=== PATIENT | female | born 1935 | race Caucasian/White ===

== ENCOUNTER 2018-12-25 12:23 | Emergency (ER) | payer MEDICARE ==
[2018-12-25 13:05] LABS: Bilirubin Negative (Negative); Blood, Urine Negative (Negative); Clarity Clear (Clear); Glucose, Urine (Dipstick) Normal (Negative); Leukocyte Negative Leu/uL (Negative); Nitrite Negative (Negative); Protein, Urine (Dipstick) Negative (Neg-Trace); Urobilinogen Normal mg/dL (Less than 2)
[2018-12-25 13:19] LABS: Hemoglobin 10.6 g/dL (12.0-16.0); Mean Corpuscular HGB CONC 33.4 g/dL (32.0-36.0); Mean Corpuscular Hemoglobin 32.4 pg (27.0-31.0); Mean Platelet Volume 7.4 fL (7.4-10.4); Platelet Count 199 thou/uL (130-400); RBC Distribution Width 11.4 % (11.5-14.5); Red Blood Cell (RBC) Count 3.26 mill/uL (4.20-5.40)
[2018-12-25 13:41] LABS: Band 1 % (5-11); Eosinophils 1 % (0-10); Lymphocytes 23 % (21-51); MDiff Complete? YES; Monocytes 12 % (0-10); Neutrophil 62 % (42-75); Platelet Morphology Comment Appears Adequate; Polychromasia SLIGHT = 2-3 cells (100X) (0-2/hpf); Reactive Lymphocytes 1 % (0-10)
[2018-12-25 13:42] LABS: ALT (SGPT) 11 U/L (8-55); AST (SGOT) 18 U/L (5-34); Albumin 3.3 g/dL (3.4-4.8); Alkaline Phosphatase 50 U/L (40-110); Anion Gap 15 mmol/L (10-20); BUN (Urea Nitrogen) 17 mg/dL (9.8-20.1); Bilirubin, Total 0.5 mg/dL (0.2-1.2); Calc. Creatinine Clearance 0 mL/min (70-130); Calcium 9.2 mg/dL (7.8-10.44); Carbon Dioxide 22 mmol/L (23-31); Chloride 104 mmol/L (98-107); Estimated GFR-MDRD 58; Globulin 2.6 g/dL (2.4-3.5); Glucose 86 mg/dL (83-110); Potassium 3.5 mmol/L (3.5-5.1); Protein, Total 5.9 g/dL (6.0-8.3); Sodium 137 mmol/L (136-145)
--- NOTE | 2018-12-25 14:13 | RAD ---
RADIOGRAPH CHEST 1 VIEW: DATE: 12/25/2018 HISTORY: 83-year-old female with fever. FINDINGS: There are no airspace densities, pulmonary edema, pneumothorax, or cardiomegaly. The lateral costophr enic angles are sharp. IMPRESSION: No acute cardiopulmonary findings.
--- NOTE | 2018-12-25 14:41 | ULT ---
ULTRASOUND DOPPLER DUPLEX VENOUS RIGHT LOWER EXTREMITY: DATE: 12/25/2018 HISTORY: 83-year-old female with right lower extremity pain TECHNIQUE: Grayscale, color-flow, and spectral analysis, of major veins of right lower extremity. FINDINGS: There is demonstration of blood flow with normal compressibility, of the right common femoral, profun da femoral, greater saphenous, femoral, popliteal, and posterior tibial, veins. IMPRESSION: Negative. No deep venous thrombosis of right lower extremity.
--- NOTE | 2018-12-25 14:48 | CT ---
CT BRAIN NONCONTRAST: DATE: 12/25/2018 HISTORY: 83-year-old female with altered mental status: Unresponsive. FINDINGS: There is no evidence of acute intra-axial or extra-axial hemorrhage. There is no midline shift or any other mass effect. There is no extra-axial fluid collection. There is no evidence of obstructive hydrocephalus. Calvarium is intact. There is diffuse brain parenchymal volume loss. There are low att enuation areas in the white matter. These are nonspecific, but in a patient of this age, they are probably chronic ischemic white matter changes due to microvascular atherosclerosis. Small old lacuna r infarction at anterior portion of left basal ganglia involving anterior limb of left internal capsule and anterior portion of left external capsule. Tiny old lacunar infarction of right cerebella r hemisphere. IMPRESSION: 1) No acute intracranial findings. 2) involutional changes and chronic ischemic white matter changes. 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
== END 2018-12-25 15:58 | disposition home or self-care (01) ==
LOC: ERS 12:23
DX: T16.1XXA Foreign body in right ear, initial encounter (principal); H60.90 Unspecified otitis externa, unspecified ear; E78.5 Hyperlipidemia, unspecified; I10 Essential (primary) hypertension; Z87.891 Personal history of nicotine dependence; M25.471 Effusion, right ankle
CPT/HCPCS: 36415; 51701; 69200; 70450; 71045; 80053; 81003; 83605; 85025; 87040; A4353

== ENCOUNTER 2019-03-23 07:24 | Emergency (ER) | payer MEDICARE ==
--- NOTE | 2019-03-23 09:10 | RAD ---
EXAM: 2 views of the lumbosacral spine HISTORY: Low back pain after fall COMPARISON: None FINDINGS: 2 views of the lumbosacral spine shows normal height and alignment of the vertebral bodies without fracture or subluxation. Moderate degenerative changes are seen throughout the lumbar spine with intervertebral disc space narrowing and osteophyte formation. The sacroiliac joints are unremarkable. Dense calcifications are seen in the aorta. IMPRESSION: Moderate degenerative changes of the lumbar spine without acute osseous abnormality.
--- NOTE | 2019-03-23 09:16 | RAD ---
XR Chest Pa Lat STANDARD HISTORY: Fall COMPARISON: 12/25/2018 FINDINGS: The heart size is prominent. The lungs are well expanded without focal areas of consolidati on, pneumothorax or pleural effusions.
--- NOTE | 2019-03-23 09:17 | CT ---
Head CT without contrast 03/23/2019: COMPARISON: 12/25/2018 HISTORY: Fall, altered mental status TECHNIQUE: Axial CT imaging at 5 mm intervals from vertex through skull base without contrast FINDINGS: The imaged paranasal sinuses and mastoid air cells are well aerated. No displaced calvarial fracture. No intracranial hemorrhage, midline shift, or mass effect. Periventricular and deep white matter hypodensity noted, evidence of small vessel disease. Evidence o f prior lacunar infarctions are noted within the basal ganglia bilaterally, left greater than right. No acute findings. IMPRESSION: Stable head CT as detailed above. No intracranial hemorrhage. If there is clinical concer n for acute infarction, brain MRI suggested.
[2019-03-23] MEDS ORDERED: Acetaminophen 500 MG TAB ONE (09:23)
--- NOTE | 2019-03-23 09:26 | CT ---
CT CERVICAL SPINE WITH CORONAL AND SAGITTAL REFORMATIONS AND NO IV CONTRAST: HISTORY: Fall, neck pain FINDINGS: Multilevel degenerative changes are present. There is minimal anterolisthesis of C3 over C4 and C4 over C5 vertebral bodies. No fracture, subluxation or facet malalignment is identified. No prevertebral soft tissue swelling is apparent. IMPRESSION: No CT evidence for fracture or traumatic subluxation.
== END 2019-03-23 11:19 | disposition home or self-care (01) ==
LOC: ERS 07:24
DX: S20.229A Contusion of unspecified back wall of thorax, initial encounter (principal); E78.5 Hyperlipidemia, unspecified; I10 Essential (primary) hypertension; M19.90 Unspecified osteoarthritis, unspecified site; F03.90 Unspecified dementia, unspecified severity, without behavioral disturbance, psychotic disturbance, mood disturbance, and anxiety; D64.9 Anemia, unspecified; E55.9 Vitamin D deficiency, unspecified; Z87.891 Personal history of nicotine dependence; Z79.899 Other long term (current) drug therapy; W19.XXXA Unspecified fall, initial encounter
CPT/HCPCS: 70450; 71046; 72100; 72125

== ENCOUNTER 2019-04-12 17:14 | Inpatient (IN) | payer MEDICARE ==
--- NOTE | 2019-04-12 18:17 | RAD ---
XR Hip Lt 2-3 View History: Pain. Fall Comparison: None. Findings: Comminuted mild varus angulated intertrochanteric fracture left femur. Mild vascular calcif ications. Left obturator ring is intact. Impression: Varus angulated comminuted intertrochanteric fracture left femur with extension to the le sser and greater trochanters.
--- NOTE | 2019-04-12 18:43 | RAD ---
CHEST ONE VIEW: 04/12/19 HISTORY: Hip fracture. Preoperative exam. COMPARISON: 12/25/18 FINDINGS: Atherosclerosis and elongation of the aorta. Normal cardiac silhouette. The pulmonary vessels and hil um are normal. Costophrenic angles are clear. Hyperinflation with chronic lung parenchymal changes. N o masses or consolidation. No pneumothorax or acute osseous abnormalities. IMPRESSION: 1. Hyperinflation. Chronic changes. 2. Atherosclerosis. POS: PPP
[2019-04-12 19:24] LABS: Bilirubin Negative (Negative); Blood, Urine Negative (Negative); Clarity Clear (Clear); Glucose, Urine (Dipstick) Normal (Negative); Leukocyte Negative Leu/uL (Negative); Nitrite Negative (Negative); Protein, Urine (Dipstick) Negative (Neg-Trace); Urobilinogen Normal mg/dL (Less than 2)
[2019-04-12 19:43] LABS: #Eosinphils 0.1 thou/uL (0.0-0.7); #Lymphocytes 1.1 thou/uL (1.20-3.40); #Monocytes 0.8 thou/uL (0.11-0.59); #Neutrophils 10.1 thou/uL (1.40-6.50); %Basophils 0.2 % (0.0-1.0); %Eosinophils 0.5 % (0.0-10.0); %Lymphocytes 9.3 % (21.0-51.0); %Monocytes 6.8 % (0.0-10.0); %Neutrophils 83.3 % (42.0-75.0); Hemoglobin 10.8 g/dL (12.0-16.0); Mean Corpuscular HGB CONC 32.6 g/dL (32.0-36.0); Mean Corpuscular Hemoglobin 30.5 pg (27.0-31.0); Mean Corpuscular Volume 93.6 fL (78.0-98.0); Mean Platelet Volume 8.4 fL (7.4-10.4); Platelet Count 154 thou/uL (130-400); RBC Distribution Width 11.7 % (11.5-14.5); Red Blood Cell (RBC) Count 3.53 mill/uL (4.20-5.40); White Blood Cell (WBC) Count 12.1 thou/uL (4.8-10.8)
[2019-04-12 20:02] LABS: Anion Gap 12 mmol/L (10-20); BUN (Urea Nitrogen) 27 mg/dL (9.8-20.1); Calc. Creatinine Clearance 0 mL/min (70-130); Calcium 9.4 mg/dL (7.8-10.44); Carbon Dioxide 26 mmol/L (23-31); Chloride 103 mmol/L (98-107); Estimated GFR-MDRD 56; Glucose 121 mg/dL (83-110); Potassium 3.2 mmol/L (3.5-5.1); Sodium 138 mmol/L (136-145)
[2019-04-12] MEDS ORDERED: Morphine 2 MG/ML SYRINGE ONE ×2 (20:02→20:10)
[2019-04-12] MEDS ORDERED: traMADol HCl 50 MG TAB PO PRN (21:58)
[2019-04-12] MEDS ORDERED: Dextrose 5% in Water 1,000 ML IV PRN (21:58)
[2019-04-12] MEDS ORDERED: Dextrose 50% Abboject 50 ML SYRINGE SLOW IVP PRN (21:58)
[2019-04-12] MEDS ORDERED: Ondansetron ODT 4 MG TAB PO PRN (21:58)
[2019-04-12] MEDS ORDERED: hydrALAZINE 20 MG/ML VIAL SLOW IVP PRN (21:58)
[2019-04-12] MEDS ORDERED: Ondansetron PF 4 MG/2 ML Vial IVP PRN (21:58)
[2019-04-12] MEDS: Acetaminophen 325 MG TAB PO SCH (22:43)
[2019-04-12] MEDS: Sodium Chloride 0.9% 1,000 ML IV SCH (22:43)
[2019-04-12] MEDS ORDERED: Ibuprofen 200 MG TAB PO SCH (23:00)
[2019-04-12] MEDS: Melatonin 3 MG TAB PO PRN (23:51)
[2019-04-12] MEDS: Cyclobenzaprine 10 MG TAB PO PRN (23:51)
--- NOTE | 2019-04-13 01:29 | HP ---
This is Rahul Morton PA-C dictating a report for Bonilla Cota MD. REQUESTING PHYSICIAN: Dr. Hammond. CONSULTATIONS: Orthopedics, Dr. Patiño. HISTORY OF PRESENT ILLNESS: The patient is an 83-year-old woman, who resides at a alf where she had an unwitnessed fall, was brought to the emergency department with a chief complaint of left hip pain. The patient appeared to be at her baseline mentally and had no signs of head trauma. She underwent evaluation and examination and was noted to have a left hip fracture at which time we were asked to evaluate the patient for admission and obtain orthopedic consultation. ALLERGIES: NONE. CURRENT MEDICATIONS: 1. Depakote. 2. Simvastatin. 3. Lisinopril-hydrochlorothiazide. 4. Nicardipine. 5. Vitamin D3. 6. Vitamin C. 7. Floxin Otic drops. PAST MEDICAL HISTORY: Osteoarthritis, dementia, hyperlipidemia, hypertension, chronic anemia, vitamin D deficiency, dysphagia. PAST SURGICAL HISTORY: Appendectomy, tubal ligation, cataract surgery. SOCIAL HISTORY: Again, the patient lives in a alf in [facility]. There is no history of drug, tobacco, or alcohol use. REVIEW OF SYSTEMS: A 10-point review of systems is negative as otherwise stated. PHYSICAL EXAMINATION: VITAL SIGNS: Blood pressure 158/79, heart rate 64, respirations 18, oxygen saturation 95% on room air, and temperature is 98.0. GENERAL: The patient is resting comfortably in bed. She is awake, A and O x1, which her daughter states is her baseline. She is interactive, appropriate, will follow commands. Her [place] Coma Scale is 14, -1 for confusion. HEENT: Head; normocephalic, atraumatic. Eyes, extraocular motion intact. PERRLA bilaterally. Ears are atraumatic without discharge. Nose is atraumatic without discharge. Oropharynx is clear. NECK: Nontender. Trachea is midline. No JVD. CHEST: Clear to auscultation with good inspiratory and expiratory effort. HEART: Regular rate and rhythm. ABDOMEN: Soft, flat, nontender with active bowel sounds. PELVIS: Stable with tenderness to palpation to the right hip consistent with her fracture. EXTREMITIES: Neurovascularly intact x4. BACK: By report is atraumatic and nontender. RADIOGRAPHIC FINDINGS: AP chest x-ray shows chronic changes and atherosclerosis. No acute findings. Views of the right hip shows varus angulated comminuted intertrochanteric fracture of the left femur with extension to the lesser and greater trochanters. ASSESSMENT AND PLAN: 1. Status post ground level fall, unwitnessed. 2. Left hip fracture. 3. History of dementia. 4. History of hypertension, hyperlipidemia, anemia. PLAN: Plan will be to admit the patient to the surgical floor. She will be made n.p.o. after midnight. We will do pain control, pulmonary toilet, gastritis and mechanical VTE prophylaxis. The Emergency Department notified Dr. Patiño. The evaluation, examination, laboratory, and radiographic findings were discussed with Dr. Cota prior to this dictation. Job ID: [id number]
[2019-04-13] MEDS ORDERED: Ibuprofen 800 MG TAB PO SCH (06:00)
[2019-04-13] MEDS: Acetaminophen 325 MG TAB PO SCH ×3 (06:13→17:25)
[2019-04-13] MEDS: Ibuprofen 200 MG TAB PO SCH ×3 (06:14→21:38)
[2019-04-13 06:20] LABS: #Lymphocytes 1.7 thou/uL (1.20-3.40); #Monocytes 0.9 thou/uL (0.11-0.59); #Neutrophils 5.3 thou/uL (1.40-6.50); %Basophils 0.2 % (0.0-1.0); %Eosinophils 0.6 % (0.0-10.0); %Lymphocytes 21.4 % (21.0-51.0); %Neutrophils 66.9 % (42.0-75.0); Hemoglobin 8.8 g/dL (12.0-16.0); Mean Corpuscular HGB CONC 33.7 g/dL (32.0-36.0); Mean Corpuscular Volume 94.8 fL (78.0-98.0); Mean Platelet Volume 8.8 fL (7.4-10.4); Platelet Count 128 thou/uL (130-400); RBC Distribution Width 11.9 % (11.5-14.5); Red Blood Cell (RBC) Count 2.75 mill/uL (4.20-5.40)
[2019-04-13 06:29] LABS: Anion Gap 12 mmol/L (10-20); BUN (Urea Nitrogen) 27 mg/dL (9.8-20.1); Calc. Creatinine Clearance 0 mL/min (70-130); Calcium 8.8 mg/dL (7.8-10.44); Carbon Dioxide 23 mmol/L (23-31); Chloride 105 mmol/L (98-107); Estimated GFR-MDRD 52; Glucose 102 mg/dL (83-110); Potassium 3.3 mmol/L (3.5-5.1); Sodium 137 mmol/L (136-145)
[2019-04-13 06:35] VITALS: BMI 21.1
[2019-04-13] MEDS: Sodium Chloride 0.9% 1,000 ML IV SCH (06:37)
[2019-04-13 06:49] LABS: Magnesium 1.6 mg/dL (1.6-2.6); Phosphorus 4.2 mg/dL (2.3-4.7)
[2019-04-13] MEDS ORDERED: Sodium Chloride 0.9% 500 ML IV SCH (07:30)
[2019-04-13] MEDS ORDERED: CEFAZOLIN 2 GM in Premix Bag 1 BAG IVPB SCH (08:00)
[2019-04-13] MEDS: Lisinopril/Hydrochlorothiazide 20/25 mg Tablet PO SCH (08:23)
[2019-04-13] MEDS: Divalproex Sodium 125 mg Sprinkle Capsule PO SCH ×2 (08:23→20:03)
[2019-04-13] MEDS: Mirtazapine 15 MG TAB PO SCH (08:24)
[2019-04-13] MEDS ORDERED: Potassium Chloride 40 MEQ, Magnesium Sulfate 2 GM in Sodium Chloride 0.9% 250 ML 250 ML IVPB SCH (09:00)
[2019-04-13] MEDS ORDERED: FLU VACC TS2019-20(65YR UP)/PF 180 MCG/0.5 ML SYRINGE IM ONE (09:00)
[2019-04-13] MEDS ORDERED: Simvastatin 40 MG TAB PO SCH (09:00)
[2019-04-13] MEDS ORDERED: Divalproex Sodium DR 500 MG TAB PO SCH (09:00)
[2019-04-13] MEDS ORDERED: Mirtazapine 15 MG TAB PO SCH (09:00)
[2019-04-13] MEDS ORDERED: Ondansetron PF 4 MG/2 ML Vial ONE (10:10)
[2019-04-13] MEDS ORDERED: PROPOFOL 200 MG/20 ML VIAL ONE (10:10)
[2019-04-13] MEDS ORDERED: Ketorolac Tromethamine 30 MG/ML VIAL ONE (10:10)
[2019-04-13] MEDS ORDERED: Dexamethasone 20 MG/5 ML VIAL ONE (10:10)
--- NOTE | 2019-04-13 10:18 | CON ---
DATE OF CONSULTATION: CHIEF COMPLAINT: Left hip pain. HISTORY OF PRESENT ILLNESS: Ms. Sandoval is an 83-year-old female, who has fallen at her nursing facility. The patient has advanced dementia, but does ambulate independently. She is reported to be very active, walking much of the day. She had an unwitnessed fall. She does not use a walker or assistive device. She landed on her left side. She had pain in the left hip. She was unable to mobilize. She was taken to the emergency department by EMS. X-rays determined a left intertrochanteric femur fracture. She has been admitted to the hospital for pain control and further treatment. Orthopedics was consulted. ALLERGIES: NONE. MEDICATIONS: 1. Depakote. 2. Simvastatin. 3. Lisinopril. 4. Nicardipine. 5. Vitamin D. 6. Vitamin C. 7. Floxin otic drops. PAST MEDICAL HISTORY: Includes hyperlipidemia, hypertension, vitamin D deficiency, osteoarthritis, and dysphagia. PAST SURGICAL HISTORY: Appendectomy, tubal ligation, and previous cataract surgery. SOCIAL HISTORY: The patient lives in a nursing facility in [place]. Her daughter is at the bedside. They deny any tobacco, alcohol, or drug use. REVIEW OF SYSTEMS: Positive for left hip pain with movement. Otherwise, negative 10-point review of systems. PHYSICAL EXAMINATION: VITAL SIGNS: Temperature is 97.5, pulse is 75, respiratory rate is 18, oxygen saturation 98%, and blood pressure is 130/76. GENERAL: She is alert, sitting upright in no apparent distress. LUNGS: Breathing comfortably. ABDOMEN: Soft, nontender, and nondistended. MUSCULOSKELETAL: The patient's left lower extremity is shortened and rotated. She is neurovascularly intact in the foot and ankle. She has palpable pulse. Upper extremities are atraumatic as well as the right lower extremity. IMAGING DATA: X-rays of the left hip demonstrate an intertrochanteric femur fracture with shortening and displacement. IMPRESSION: Left intertrochanteric femur fracture in an elderly female with dementia. PLAN: At this point, the patient will need surgical intervention. Goal of surgery is to allow the patient to mobilize and prevent complications of prolonged bed rest. She does have an advanced dementia, but it remains very active. The patient will be taken to surgery later today. She will be n.p.o. She will have antibiotic prophylaxis. She will have DVT prophylaxis. Job ID: [id number]
[2019-04-13] MEDS ORDERED: Fentanyl 100 MCG/2 ML VIAL ONE (11:11)
--- NOTE | 2019-04-13 12:22 | PRG ---
DATE OF SERVICE: 04/13/2019 SUBJECTIVE: The patient's daughter was at bedside this morning. This is an 83-year-old woman who has an intertrochanteric hip fracture sustained yesterday after an unwitnessed fall. Per the daughter, the patient is very mobile and has a walker, but sometimes forgets to use it. The patient lives in a correction. The plan is for the patient to go to surgery today, so she may regain her mobility. The daughter reports last night that the patient was in some pain after many transfers and having to be helped to the bathroom. However, the patient has gained some sleep overnight and currently she denies pain to me. OBJECTIVE: VITAL SIGNS: Temperature 97.5, heart rate 66, respirations 14, saturating 95% on room air, blood pressure 163/68. GENERAL: Resting comfortably. No acute distress. Awake and oriented x1 to self. This is her baseline. RESPIRATORY: Nonlabored breathing. No acute respiratory distress. CARDIAC: Regular rate and rhythm. No murmur. ABDOMEN: Soft, nondistended. EXTREMITIES: Neurovascularly intact. LABORATORY DATA: WBC 8.0, hemoglobin 8.8, hematocrit 26.1, platelets 128. Sodium 137, potassium 3.3, chloride 105, carbon dioxide 23, BUN 27, creatinine 1.01, glucose 102, calcium 8.8, phosphorus 4.2, magnesium 1.6. Urinalysis from yesterday was within normal limits. ASSESSMENT: 1. Status post ground level fall, unwitnessed. 2. Left hip fracture. 3. History of dementia. 4. History of hypertension, hyperlipidemia, and anemia. PLAN: The patient is going to the operating room this morning with Dr. Patiño. After surgery, she will begin physical and occupational therapy. She will return to [facility] in [place]. The patient does wear hearing aids, so encouraged the daughter to keep the hearing aids in the room and give them for the patient during the day. The patient only had 200 mL of urine output overnight, so we gave her a 500 mL bolus this morning. Job ID: [id number] MTDD
--- NOTE | 2019-04-13 14:45 | RAD ---
XR Hip Lt 2-3 View HISTORY: Left hip fracture and left hip pain COMPARISON: Previous day FINDINGS: 3 spot fluoroscopic intraoperative images of the left hip demonstrate interval reduction an d internal fixation of the intertrochanteric fracture noted on the previous day.
[2019-04-13] MEDS: CEFAZOLIN 2 GM in Premix Bag 1 BAG IVPB SCH ×2 (14:59→21:38)
--- NOTE | 2019-04-13 17:13 | OP ---
DATE OF PROCEDURE: 04/13/2019 OPERATION: Left femur intramedullary nail. PREOPERATIVE DIAGNOSIS: Left femur intertrochanteric fracture. POSTOPERATIVE DIAGNOSIS: Left femur intertrochanteric fracture. COMPLICATIONS: None. ESTIMATED BLOOD LOSS: 150 mL. NEWS TECHNICAL DIRECTOR: Juan Dias PA-C. IMPLANT: Synthes 12 mm trochanteric nail with helical blade and Crosslock screw. INDICATIONS: Ms. Sandoval is an 83-year-old female, who fell and fractured her left femur. She has been indicated for intramedullary nail fixation to restore anatomic alignment and promote healing. Risks have been reviewed in detail. She elected to proceed with the operation. The goal of surgery is to promote early mobilization. DESCRIPTION OF PROCEDURE: Ms. Sandoval was identified in the preoperative holding area. Her correct extremity was marked. She was carried to the operating room. She was positioned supine. General anesthesia was induced. She was given intravenous antibiotics. A multidisciplinary time-out was performed. The left lower extremity was prepped and draped in sterile fashion. We performed a reduction using the fracture table with traction and rotation. We took x-rays to confirm that we had a fully reduced femur. At this point, we began the procedure with a small incision proximal to the trochanter. We inserted a guidewire at the tip of the trochanter. We then overdrilled the guidewire. Next, we passed our 12-mm nail from proximal to distal. This was seated in the femur. We then placed a guidewire through the appropriate guide into the centered position of the femoral head. We measured our guidewire and impacted a helical blade. This was placed in a dynamic position. We then finished the procedure with a distal Crosslock screw. At this point, we took final images. We thoroughly irrigated. We then closed appropriately in layers. A sterile dressing was applied. The patient was taken to the recovery room in good condition. Job ID: [id number]
[2019-04-13] MEDS: Atorvastatin Calcium 20 MG TAB PO SCH (20:02)
[2019-04-13] MEDS: Melatonin 3 MG TAB PO PRN (20:02)
[2019-04-13] MEDS: Senokot S 8.6-50 MG TAB PO SCH (20:02)
[2019-04-13] MEDS ORDERED: MELATONIN PO SCH (21:00)
[2019-04-13] MEDS ORDERED: PYRIDOXINE HCL PO SCH (21:00)
[2019-04-13] MEDS: Morphine 2 MG/ML SYRINGE SLOW IVP PRN (21:32)
[2019-04-13] MEDS ORDERED: diphenhydrAMINE 50 MG/ML VIAL IM SCH (23:30)
[2019-04-14] MEDS: Morphine 2 MG/ML SYRINGE SLOW IVP PRN (00:02)
[2019-04-14] MEDS: Acetaminophen 325 MG TAB PO SCH ×4 (00:10→18:15)
[2019-04-14] MEDS ORDERED: Ziprasidone 20 MG VIAL IM PRN (00:24)
[2019-04-14] MEDS ORDERED: Sterile Water 10 ML VIAL FS PRN (00:33)
--- NOTE | 2019-04-14 02:14 | PRG ---
DATE OF SERVICE: 04/14/2019 SUBJECTIVE: The patient is currently on the surgical floor. She is status post ground level fall when she sustained a left femur intertrochanteric fracture. She has undergone operative intervention today, which she tolerated well. The patient does have significant dementia. Without her daughter or her regular sitter/foot miter operator, she is definitely become more agitated and more difficult to reorient. She denies any pain at the time of visit. She was awake and conversant at her base level when I saw her in the emergency department at her admission. OBJECTIVE: VITAL SIGNS: Stable. She is afebrile. GENERAL: She is resting comfortably in bed. She appears in no distress. She does repeatedly ask where her daughter is at and why we have her here. RESPIRATIONS: Nonlabored. EXTREMITIES: She is moving all her extremities freely. ASSESSMENT/PLAN: 1. Status post ground level fall. 2. Status post open reduction and internal fixation, left femur intramedullary nail for left femur intertrochanteric fracture. 3. Dementia. PLAN: Plan will be to continue supportive care, Physical and Occupational Therapy and work on returning the patient to her [facility] as soon as possible to help with her mood. Job ID: [id number]
[2019-04-14] MEDS: Senokot S 8.6-50 MG TAB PO SCH ×2 (08:55→20:27)
[2019-04-14] MEDS: Lisinopril/Hydrochlorothiazide 20/25 mg Tablet PO SCH (08:55)
[2019-04-14] MEDS: Divalproex Sodium 125 mg Sprinkle Capsule PO SCH ×3 (08:55→20:37)
[2019-04-14] MEDS: Mirtazapine 15 MG TAB PO SCH (08:57)
[2019-04-14] MEDS: Ibuprofen 200 MG TAB PO SCH (08:58)
[2019-04-14] MEDS: Polyethylene Glycol 3350 17 GM Packet PO SCH (08:59)
[2019-04-14 09:08] LABS: #Basophils 0.1 thou/uL (0.0-0.2); #Eosinphils 0.1 thou/uL (0.0-0.7); #Lymphocytes 2.4 thou/uL (1.20-3.40); #Monocytes 1.4 thou/uL (0.11-0.59); %Basophils 0.6 % (0.0-1.0); %Eosinophils 0.6 % (0.0-10.0); %Lymphocytes 19.9 % (21.0-51.0); %Monocytes 11.3 % (0.0-10.0); %Neutrophils 67.6 % (42.0-75.0); Hemoglobin 7.8 g/dL (12.0-16.0); Mean Corpuscular HGB CONC 31.3 g/dL (32.0-36.0); Mean Corpuscular Hemoglobin 31.2 pg (27.0-31.0); Mean Corpuscular Volume 99.9 fL (78.0-98.0); Mean Platelet Volume 8.9 fL (7.4-10.4); Platelet Count 126 thou/uL (130-400); RBC Distribution Width 12.1 % (11.5-14.5); White Blood Cell (WBC) Count 11.9 thou/uL (4.8-10.8)
[2019-04-14 09:37] LABS: Anion Gap 13 mmol/L (10-20); BUN (Urea Nitrogen) 24 mg/dL (9.8-20.1); Calc. Creatinine Clearance 36 mL/min (70-130); Calcium 8.3 mg/dL (7.8-10.44); Carbon Dioxide 21 mmol/L (23-31); Chloride 109 mmol/L (98-107); Estimated GFR-MDRD 48; Glucose 86 mg/dL (83-110); Magnesium 2.2 mg/dL (1.6-2.6); Phosphorus 2.7 mg/dL (2.3-4.7); Potassium 3.9 mmol/L (3.5-5.1); Sodium 139 mmol/L (136-145)
[2019-04-14] MEDS: Hydrocortisone 1% Cream 30 GM TUBE TOP SCH ×2 (10:51→20:26)
--- NOTE | 2019-04-14 13:58 | PRG ---
DATE OF SERVICE: 04/14/2019 SUBJECTIVE: This is an 83-year-old shelter patient who is postop day #1 status post fall and repair of left intertrochanteric hip fracture. Overnight, she had acute delirium on top of her chronic dementia and she pulled out her Bowers and her IV. The patient was placed on the commode without success. Straight cath at 0650 this morning yielded 800 mL of urine. She was given Geodon once and morphine twice overnight for her agitation and pain. OBJECTIVE: VITAL SIGNS: Hypertensive, 157/62, otherwise stable. GENERAL: Well appearing, in no acute distress. HEART: Regular rate and rhythm. LUNGS: Clear to auscultation bilaterally. ABDOMEN: Soft and nondistended. EXTREMITIES: Neurovascularly intact. ASSESSMENT: 1. Status post ground level fall. 2. Postop day #1 status post open reduction and internal fixation of left femur intertrochanteric fracture. 3. Dementia. 4. History of hypertension, hyperlipidemia, and anemia. PLAN: We will continue supportive care, physical therapy, and occupational therapy. Physical Therapy has recommended long term facility, which would mean returning to [facility] in [place] for this patient. However, patient's daughter is concerned about her mother going back to her shelter because this is where she was unmonitored and fell. She states that her mother's room is far from the nurse's station and that the patient will forget to use her walker. I talked with the daughter twice today about options to decrease fall risk and the option of having a 24-hour sitter. The daughter reports she is low on financial resources at this point, as she has hired sitters in the past to attend to her mother. We discussed that the patient also is likely not a good candidate for acute inpatient rehab at this time as inpatient rehab for dementia patients often focuses on caregiver training. We will likely have her return to the shelter tomorrow and place as many fall precautions in place as possible. Job ID: [id number] [facility]
[2019-04-14] MEDS: Cyclobenzaprine 10 MG TAB PO PRN (16:14)
[2019-04-14] MEDS: Atorvastatin Calcium 20 MG TAB PO SCH ×2 (20:24→20:37)
[2019-04-14] MEDS ORDERED: Enoxaparin Sodium 40 MG/0.4 ML SYRINGE SC SCH (21:00)
--- NOTE | 2019-04-15 00:05 | PRG ---
DATE OF SERVICE: 04/14/2019 SUBJECTIVE: The patient remains on the surgical floor. She is status post ground level fall when she sustained a left hip fracture. She has undergone operative intervention for that and today she started to work with Physical and Occupational Therapy. The patient does have significant dementia and last night had an acute episode of delirium, which carried over somewhat reportedly today, making it difficult for her to work with the therapist, but she was at least out of bed. She is tolerating a diet and it appears that her pain is controlled. PHYSICAL EXAMINATION: VITAL SIGNS: Stable. GENERAL: The patient is resting comfortably at the time of my visit. She has just been medicated with Seroquel and to prevent agitation, I did not awaken her, but observe her from a distance, she appeared to be in no distress. Her respirations were nonlabored. She was moving all 4 extremities. ASSESSMENT: 1. Status post ground level fall. 2. Postop day #1, status post open reduction and internal fixation of left hip fracture. 3. Dementia. 4. History of hypertension, hyperlipidemia, and anemia. PLAN: Will be to continue supportive care, physical and occupational therapy, normalize her routine as much as possible and await placement decision. Job ID: [id number]
[2019-04-15] MEDS: Acetaminophen 325 MG TAB PO SCH ×4 (00:45→17:58)
[2019-04-15 07:47] LABS: #Eosinphils 0.1 thou/uL (0.0-0.7); #Lymphocytes 1.8 thou/uL (1.20-3.40); %Basophils 0.5 % (0.0-1.0); %Eosinophils 1.8 % (0.0-10.0); %Lymphocytes 22.7 % (21.0-51.0); %Monocytes 11.9 % (0.0-10.0); Hemoglobin 6.2 g/dL (12.0-16.0); Mean Corpuscular HGB CONC 33.3 g/dL (32.0-36.0); Mean Corpuscular Hemoglobin 32.3 pg (27.0-31.0); Mean Platelet Volume 8.3 fL (7.4-10.4); Platelet Count 102 thou/uL (130-400); RBC Distribution Width 12.3 % (11.5-14.5)
[2019-04-15] MEDS: Lisinopril/Hydrochlorothiazide 20/25 mg Tablet PO SCH (09:15)
[2019-04-15] MEDS: Mirtazapine 15 MG TAB PO SCH (09:15)
[2019-04-15] MEDS: Senokot S 8.6-50 MG TAB PO SCH ×2 (09:16→22:22)
[2019-04-15] MEDS: Ascorbic Acid 500 mg Chewable Tablet PO SCH ×2 (09:17→17:58)
[2019-04-15] MEDS: Divalproex Sodium 125 mg Sprinkle Capsule PO SCH ×2 (09:17→20:41)
[2019-04-15] MEDS: Ferrous Sulfate 325 MG TAB PO SCH ×2 (09:18→17:58)
[2019-04-15] MEDS: Hydrocortisone 1% Cream 30 GM TUBE TOP SCH ×2 (09:23→20:41)
[2019-04-15] MEDS: Polyethylene Glycol 3350 17 GM Packet PO SCH (09:26)
--- NOTE | 2019-04-15 17:13 | PRG ---
DATE OF SERVICE: 04/15/2019 SUBJECTIVE: Ms. Sandoval is an 83-year-old female with history of dementia and she is status post ground level fall. She sustained left hip fracture she underwent left femur intramedullary nail for left femur intertrochanteric fracture, postop, the patient suffered from severe dementia, when she becomes very agitated and lack of sleep and pulled out IV and Bowers. However, last night, the patient got 25 mg Seroquel, which helped her to sleep better. This morning, the patient is more aware and alert. She participates limited with physical therapy. She only walked around from the bed to the chair with help. She developed no fever or shortness of breath. OBJECTIVE: GENERAL: The patient is lying in bed comfortable with no acute respiratory distress. VITAL SIGNS: Temperature 97.8, heart rate 78, respiratory rate 16, O2 saturation 99 on room air, blood pressure is 120/55. NEUROLOGIC: The patient is alert and awake. Mental status is on her baseline. LUNGS: Clear bilaterally. HEART: Regular rate and rhythm. ABDOMEN: Soft and nondistended. EXTREMITIES: Neurovascularly intact x4. LABORATORY DATA: Show hemoglobin 6.2, platelet count is 122,000. Creatinine is 1.08. ASSESSMENT: 1. Status post ground level fall. 2. Left hip fracture. 3. Status post intramedullary nail of left femur for left femur fracture. 4. History of severe dementia. 5. Acute blood loss anemia. PLAN: The patient will have 1 unit of blood transfusion today. Continue supportive care. We will hold off Lovenox for DVT prophylaxis. We will recheck CBC tomorrow. Encourage working with Physical Therapy and Occupational Therapy. Encourage awake at daytime and sleep at nighttime. Anticipate placement in a halfway facility tomorrow. Job ID: [id number]
[2019-04-15] MEDS: traMADol HCl 50 MG TAB PO PRN (18:02)
[2019-04-15] MEDS: Atorvastatin Calcium 20 MG TAB PO SCH (20:40)
[2019-04-16 02:08] LABS: Hemoglobin 6.9 g/dL (12.0-16.0); Platelet Count 109 thou/uL (130-400)
[2019-04-16] MEDS: Acetaminophen 325 MG TAB PO SCH ×5 (03:40→18:14)
[2019-04-16] MEDS ORDERED: Hydrocortisone Sod Succ/PF 100 mg/2 ml Vial IVP SCH (04:45)
[2019-04-16] MEDS: Ferrous Sulfate 325 MG TAB PO SCH ×2 (09:40→18:14)
[2019-04-16] MEDS: Divalproex Sodium 125 mg Sprinkle Capsule PO SCH ×2 (09:40→19:23)
[2019-04-16] MEDS: Ascorbic Acid 500 mg Chewable Tablet PO SCH ×2 (09:41→18:15)
[2019-04-16] MEDS: Lisinopril/Hydrochlorothiazide 20/25 mg Tablet PO SCH (09:41)
[2019-04-16] MEDS: Senokot S 8.6-50 MG TAB PO SCH ×2 (09:41→19:23)
[2019-04-16] MEDS: Mirtazapine 15 MG TAB PO SCH (09:41)
[2019-04-16] MEDS: traMADol HCl 50 MG TAB PO PRN (09:42)
[2019-04-16] MEDS: Polyethylene Glycol 3350 17 GM Packet PO SCH (09:48)
[2019-04-16] MEDS: Hydrocortisone 1% Cream 30 GM TUBE TOP SCH ×2 (09:48→19:37)
--- NOTE | 2019-04-16 12:32 | PRG ---
DATE OF SERVICE: 04/16/2019 SUBJECTIVE: The patient is currently on the surgical floor. She is status post open reduction and internal fixation of a left hip fracture yesterday. She was transfused 1 unit of packed red blood cells. Her repeat hemoglobin this morning showed that she is still below 7 and we will transfuse one additional unit of packed red blood cells. She did have episodes of hypotension last night and it was also noted that she was adrenally insufficient, so we have also added hydrocortisone, which seems to have improved her blood pressure. After her Seroquel, she rested last night and we are hoping that she will be able to participate with therapy today. The patient is tolerating a diet and her pain is controlled. PHYSICAL EXAMINATION: VITAL SIGNS: Temperature is 97.4, heart rate 73, respirations 14, oxygen saturation is 94% on room air, blood pressure 123/60. GENERAL: The patient is resting comfortably in bed. She was asleep when we entered the room, but she did awaken to general verbal stimuli. We did not wake her too much to prevent any agitation. RESPIRATORY: Her lungs were clear bilaterally. HEART: Regular rate and rhythm. ABDOMEN: Soft with active bowel sounds and she was moving all 4 extremities. LABORATORY FINDINGS: Hemoglobin 6.9, hematocrit 20.3. Cortisol was 5.40. There are no radiographs reviewed this morning. ASSESSMENT AND PLAN: 1. Status post ground level fall. 2. Postop day 3 status post open reduction and internal fixation of left hip fracture. 3. Acute blood loss anemia, postop. 4. Dementia, hypertension, hyperlipidemia, and chronic anemia. PLAN: Plan will be to transfuse 1 unit of packed red blood cells this morning. We will repeat her labs in the morning. Encourage physical and occupational therapy. If she does well overnight, we will transfer her to her nursing facility tomorrow. The patient was evaluated this morning with Dr. Mirza during rounds. Job ID: [id number]
[2019-04-16] MEDS: Hydrocortisone Sod Succ/PF 100 mg/2 ml Vial IVP SCH ×2 (14:03→22:35)
[2019-04-16] MEDS: Melatonin 3 MG TAB PO PRN (19:23)
[2019-04-16] MEDS: Atorvastatin Calcium 20 MG TAB PO SCH (19:24)
--- NOTE | 2019-04-17 00:26 | PRG ---
DATE OF SERVICE: SUBJECTIVE: Ms. Sandoval is an 83-year-old female status post ground level fall, sustained left hip fracture, she underwent ORIF of left hip fracture, acute blood loss anemia, has been transfused with 2 units of blood yesterday, severe dementia, hypertension, and chronic anemia. The patient has been stable. Pain is well controlled. Her dementia is stable. The patient currently is lying down in bed with no acute respiratory distress. OBJECTIVE: VITAL SIGNS: Stable. LUNGS: Clear bilaterally. HEART: Regular rate and rhythm. ABDOMEN: Soft, nondistended. EXTREMITIES: Neurovascularly intact x4. ASSESSMENT: Status post ground level fall with right hip fracture status post open reduction and internal fixation of right hip fracture, acute blood loss anemia with 2 units of blood, history of dementia, hypertension. PLAN: We will check CBC tomorrow. The patient is waiting for placement in group home facility. Continue supportive care. Continue pain control. We will put back Lovenox if hemoglobin is stable in 24 hours. Job ID: [id number]
[2019-04-17 00:33] LABS: Platelet Count 127 thou/uL (130-400)
[2019-04-17] MEDS: Acetaminophen 325 MG TAB PO SCH ×3 (01:20→11:48)
[2019-04-17] MEDS: Hydrocortisone Sod Succ/PF 100 mg/2 ml Vial IVP SCH ×2 (05:12→12:59)
[2019-04-17 08:09] VITALS: TEMP 97.8
[2019-04-17] MEDS: Lisinopril/Hydrochlorothiazide 20/25 mg Tablet PO SCH (09:07)
[2019-04-17] MEDS: Divalproex Sodium 125 mg Sprinkle Capsule PO SCH (09:07)
[2019-04-17] MEDS: Senokot S 8.6-50 MG TAB PO SCH (09:08)
[2019-04-17] MEDS: Mirtazapine 15 MG TAB PO SCH (09:08)
[2019-04-17] MEDS: Ferrous Sulfate 325 MG TAB PO SCH (09:09)
[2019-04-17] MEDS: Ascorbic Acid 500 mg Chewable Tablet PO SCH (09:09)
[2019-04-17] MEDS: Hydrocortisone 1% Cream 30 GM TUBE TOP SCH (09:11)
[2019-04-17] MEDS: Polyethylene Glycol 3350 17 GM Packet PO SCH (09:13)
[2019-04-17 11:37] VITALS: BP 112/59
[2019-04-17] MEDS: traMADol HCl 50 MG TAB PO PRN (13:03)
== END 2019-04-17 13:50 | DRG 481 ==
LOC: ERS 17:14 → SURG A 19:32
PROVIDERS: ADMIT Specialist; ATTEND Specialist
PROC: 0QS736Z Reposition Left Upper Femur with Intramedullary Internal Fixation Device, Percutaneous Approach (ICD-10-PCS; principal; 2019-04-13)
PROC: 30233N1 Transfusion of Nonautologous Red Blood Cells into Peripheral Vein, Percutaneous Approach (ICD-10-PCS; 2019-04-16)
DX: S72.142A Displaced intertrochanteric fracture of left femur, initial encounter for closed fracture (principal); D62 Acute posthemorrhagic anemia; F03.91 Unspecified dementia, unspecified severity, with behavioral disturbance; F05 Delirium due to known physiological condition; Z79.899 Other long term (current) drug therapy; M19.91 Primary osteoarthritis, unspecified site; E78.5 Hyperlipidemia, unspecified; I10 Essential (primary) hypertension; Z90.49 Acquired absence of other specified parts of digestive tract; Z98.49 Cataract extraction status, unspecified eye; Z98.51 Tubal ligation status; W18.30XA Fall on same level, unspecified, initial encounter; R13.10 Dysphagia, unspecified; E55.9 Vitamin D deficiency, unspecified
CPT/HCPCS: 36415; 36430; 51702; 71045; 76000; 80048; 81003; 82533; 83735; 84100; 85014; 85018; 85025; 85049; 86850; 86900; 86901; 93005; 93010; 96374; C1713; J0690; J1100; J1200; J1650; J1720; J1885; J2270; J2405; J2704; J3010; J3475; J3480; J3486; J7050; P9016